=== PATIENT | female | born 1995 | race Caucasian/White ===

== ENCOUNTER 2021-08-08 13:26 | Inpatient (IN) | payer MEDICAID ==
[~2021-08-08] VITALS: Ht 165.1 cm; Wt 107.5 kg
[~2021-08-08 13:26] MED LIST: LIDOCAINE HCL 2%/EPINEPHRINE 1:100,000 20 ML VIAL INFIL ONE
[2021-08-08] MEDS ORDERED: PRENATAL (14:13)
[2021-08-08] MEDS ORDERED: BUTORPHANOL TARTRATE 2 MG/ML VIAL IV PRN (18:00)
[2021-08-08] MEDS ORDERED: LIDOCAINE HCL 1% 10 MG/ML 10ML VIAL IJ SCH (18:00)
[2021-08-08] MEDS ORDERED: MISOPROSTOL 100MCG TABLET VG SCH (18:00)
[2021-08-08] MEDS ORDERED: NALOXONE HCL 0.4 MG/ML 1ML VIAL IM PRN (18:00)
[2021-08-08] MEDS ORDERED: DEXT 5%/LR + PITOCIN 20UNITS/L 1,000 ML IV SCH (18:15)
[2021-08-08 18:16] LABS: BASOPHILS % 0.3 % (0.0-2.0); EOSINOPHILS % 0.5 % (0.0-5.0); HEMATOCRIT. 35.8 % (36.0-48.0); HEMOGLOBIN. 12.5 g/dL (12.0-16.0); LYMPHOCYTES % 22.1 % (20.0-50.0); MEAN CORPUSCULAR HEMOGLOBIN 29.6 pg (28.0-32.0); MEAN CORPUSCULAR VOLUME 84.5 fL (81.0-99.0); MEAN PLATELET VOLUME 10.1 fl (7.4-10.4); MONOCYTES % 7.7 % (2.0-8.0); NEUTROPHILS % 69.4 % (40.0-76.0); PLATELET 198 x1000/uL (130-400); RED BLOOD CELL COUNT 4.23 mill/uL (4.2-5.4)
[2021-08-08 18:22] LABS: CLARITY URINE CLEAR (CLEAR); COLOR URINE YELLOW (YELLOW); KETONES URINE NEGATIVE (NEGATIVE); LEUKOCYTE ESTERASE URINE 2+ (NEGATIVE); NITRITE URINE NEGATIVE (NEGATIVE); OCCULT BLOOD URINE NEGATIVE (NEGATIVE); PH URINE 6.5 (4.5-8.0); PROTEIN URINE NEGATIVE (NEGATIVE); SPECIFIC GRAVITY URINE 1.011 (1.005-1.030); UROBILINOGEN URINE 0.2 E.U./dL (0.2-1.0)
[2021-08-08] MEDS: LACTATED RINGERS 1,000 ML IV SCH ×2 (18:24→21:32)
[2021-08-08 18:29] LABS: INR 0.9; PARTIAL THROMBOPLASTIN TIME 27.9 sec (23.4-31.0)
[2021-08-08 18:34] LABS: *AMPHETAMINES SCREEN URINE NEGATIVE (NEGATIVE); *BARBITURATES SCREEN URINE NEGATIVE (NEGATIVE)
[2021-08-08 18:35] LABS: *BENZODIAZEPINES SCREEN URINE NEGATIVE (NEGATIVE); *COCAINE SCREEN URINE NEGATIVE (NEGATIVE); CANNABINOID URINE SCREEN NEGATIVE (NEGATIVE); METHADONE URINE SCREEN NEGATIVE (NEGATIVE); OPIATES URINE SCREEN NEGATIVE (NEGATIVE); PHENCYCLIDINE URINE SCREEN NEGATIVE (NEGATIVE)
[2021-08-08 18:57] LABS: HEPATITIS B SURFACE ANTIGEN NEGATIVE
[2021-08-08] MEDS ORDERED: ROPIVACAINE HCL/PF EPIDURAL 200 ML EPI SCH (19:15)
[2021-08-08] MEDS ORDERED: ROPIVACAINE HCL/PF 100ML 100 ML ONE (22:47)
[2021-08-09] MEDS: LACTATED RINGERS 1,000 ML IV SCH (01:58)
[2021-08-09] MEDS ORDERED: ACETAMINOPHEN WITH CODEINE 300/30MG TABLET PO PRN (02:30)
[2021-08-09] MEDS ORDERED: DIPHENHYDRAMINE 25MG CAPSULE PO PRN (02:30)
[2021-08-09] MEDS ORDERED: HEMORRHOIDAL SUPP PR PRN (02:30)
[2021-08-09] MEDS ORDERED: BENZOCAINE/LANOLIN/ALOE VERA SPRAY TOP PRN (02:30)
[2021-08-09] MEDS ORDERED: BISACODYL 10MG SUPP PR PRN (02:30)
[2021-08-09] MEDS ORDERED: LANOLIN OINT 7GM TUBE TOP PRN (02:30)
[2021-08-09] MEDS ORDERED: GLYCERIN/WITCH HAZEL LEAF MEDICATED PAD TOP PRN (02:30)
[2021-08-09] MEDS ORDERED: RHO(D) IMMUNE GLOBULIN 300 MCG/SYR IM PRN (02:30)
[2021-08-09] MEDS ORDERED: DEXT 5%/LR + PITOCIN 20UNITS/L 1,000 ML IV SCH (02:30)
[2021-08-09] MEDS ORDERED: IBUPROFEN 400MG TABLET PO PRN (02:30)
[2021-08-09] MEDS ORDERED: METHYLERGONOVINE MALEATE 0.2 MG/ML IM PRN (02:45)
[2021-08-09] MEDS: IBUPROFEN 800MG TABLET PO PRN ×4 (04:10→21:03)
[2021-08-09 05:20] VITALS: BP 95/44
[2021-08-09] MEDS: SIMETHICONE 80MG TABLET CHEW PO SCH ×4 (10:14→21:02)
[2021-08-09] MEDS: MAGNESIUM/ALUMINUM HYDROXIDE/SIMETHICONE 30ML UDC PO SCH ×4 (10:14→21:02)
[2021-08-09] MEDS: PRENATAL VIT/FE FUMARATE/FA TABLET PO SCH (14:04)
[2021-08-09 16:30] VITALS: BP 99/58
[2021-08-09 20:00] VITALS: BP 101/45
[2021-08-09] MEDS ORDERED: DOCUSATE SODIUM 100MG CAPSULE PO SCH (21:00)
[2021-08-10 04:05] VITALS: BP 98/51
[2021-08-10] MEDS: IBUPROFEN 800MG TABLET PO PRN ×2 (04:17→12:42)
[2021-08-10] MEDS ORDERED: PREN1CAP28 MT (07:10)
[2021-08-10] MEDS ORDERED: IBUP-2030 PO (07:10)
[2021-08-10] MEDS ORDERED: FERR-63 PO (07:10)
[2021-08-10] MEDS ORDERED: FERROUS SULFATE 325MG TABLET PO SCH (07:30)
[2021-08-10 07:43] LABS: BASOPHILS % 0.4 % (0.0-2.0); EOSINOPHILS % 0.7 % (0.0-5.0); HEMATOCRIT. 32.4 % (36.0-48.0); HEMOGLOBIN. 11.3 g/dL (12.0-16.0); MEAN CORPUSCULAR HEMOGLOBIN 29.5 pg (28.0-32.0); MEAN CORPUSCULAR VOLUME 84.8 fL (81.0-99.0); MEAN PLATELET VOLUME 9.8 fl (7.4-10.4); MONOCYTES % 7.7 % (2.0-8.0); NEUTROPHILS % 64.2 % (40.0-76.0); PLATELET 214 x1000/uL (130-400); RED BLOOD CELL COUNT 3.82 mill/uL (4.2-5.4); RED CELL DISTRIBUTION WIDTH 15.2 % (11.6-14.6)
[2021-08-10 08:00] VITALS: BP 113/65
[2021-08-10] MEDS: PRENATAL VIT/FE FUMARATE/FA TABLET PO SCH (08:31)
[2021-08-10] MEDS: MAGNESIUM/ALUMINUM HYDROXIDE/SIMETHICONE 30ML UDC PO SCH (08:31)
[2021-08-10] MEDS: SIMETHICONE 80MG TABLET CHEW PO SCH (08:31)
[2021-08-10 12:42] VITALS: BP 113/65
== END 2021-08-10 13:50 | disposition home or self-care (01) | DRG 560 ==
LOC: OBSVTOIN 13:26 → 8 EST LDRP 13:26 → 8EST 08-09 05:00
PROVIDERS: ADMIT Obstetrics & Gynecology; ATTEND Obstetrics & Gynecology
PROC: 10E0XZZ Delivery of Products of Conception, External Approach (ICD-10-PCS; principal; 2021-08-09)
PROC: 0KQM0ZZ Repair Perineum Muscle, Open Approach (ICD-10-PCS; 2021-08-09)
PROC: 3E0R3BZ Introduction of Anesthetic Agent into Spinal Canal, Percutaneous Approach (ICD-10-PCS; 2021-08-09)
PROC: 00HU33Z Insertion of Infusion Device into Spinal Canal, Percutaneous Approach (ICD-10-PCS; 2021-08-09)
DX: O41.03X0 Oligohydramnios, third trimester, not applicable or unspecified (principal); Z37.0 Single live birth; O70.1 Second degree perineal laceration during delivery; O77.0 Labor and delivery complicated by meconium in amniotic fluid; Z3A.38 38 weeks gestation of pregnancy; Z88.8 Allergy status to other drugs, medicaments and biological substances; Z20.822 Contact with and (suspected) exposure to COVID-19
CPT/HCPCS: 36415; 76805; 76818; 80305; 81003; 85025; 86592; 86703; 86762; 86850; 86900; 87340; 87426; 99281; J2590; J2795; J3490; J7120